=== PATIENT | female | born 1985 ===

== ENCOUNTER 2019-09-16 07:28 | Emergency (ER) | payer OTHER ==
[~2019-09-16] VITALS: Ht 162.6 cm; Wt 81.6 kg
[2019-09-16 08:16] LABS: PLATELET COUNT 272 K/uL (152-353)
[2019-09-16 08:20] LABS: POTASSIUM 3.7 mmol/L (3.6-5.2); SODIUM 140 mmol/L (136-145)
[2019-09-16 10:53] VITALS: BP 106/63; TEMP 98
== END 2019-09-16 10:55 | disposition home or self-care (01) ==
LOC: ED 07:28
PROVIDERS: Family Medicine
DX: R07.89 Other chest pain (principal); K21.9 Gastro-esophageal reflux disease without esophagitis
CPT/HCPCS: 36415; 80053; 81000; 81025; 82550; 84484; 85027; 93005; 96374; 99284; J1885

== ENCOUNTER 2019-09-20 09:04 | Outpatient (CLI) | payer OTHER | END 2019-09-20 22:03 | disposition home or self-care (01) | LOC: MAMMO 09:04 | DX: N64.4 Mastodynia (principal); R07.9 Chest pain, unspecified ==

== ENCOUNTER 2019-09-21 20:36 | Emergency (ER) | payer OTHER ==
[~2019-09-21] VITALS: Ht 162.6 cm; Wt 81.6 kg
[2019-09-21 22:01] LABS: SODIUM 139 mmol/L (136-145)
[2019-09-21 22:03] LABS: PLATELET COUNT 268 K/uL (152-353)
[2019-09-21 22:56] VITALS: BP 108/74; TEMP 98.3
== END 2019-09-21 22:56 | disposition home or self-care (01) ==
LOC: ED 20:36
DX: R07.89 Other chest pain (principal)
CPT/HCPCS: 36415; 80053; 84484; 85027; 93005; 96372; 99283; J1885

== ENCOUNTER 2019-11-18 06:35 | Emergency (ER) | payer OTHER ==
[~2019-11-18] VITALS: Ht 162.6 cm; Wt 81.6 kg
[2019-11-18 08:19] LABS: PLATELET COUNT 263 K/uL (152-353)
[2019-11-18 08:27] LABS: POTASSIUM 3.4 mmol/L (3.6-5.2)
[2019-11-18 09:05] VITALS: BP 132/93; TEMP 98.1
== END 2019-11-18 09:11 | disposition home or self-care (01) ==
LOC: ED 06:35
PROVIDERS: Family Medicine
DX: J20.9 Acute bronchitis, unspecified (principal); R05 Cough; J02.9 Acute pharyngitis, unspecified; B34.9 Viral infection, unspecified; Z20.828 Contact with and (suspected) exposure to other viral communicable diseases
CPT/HCPCS: 36415; 80053; 81000; 81025; 82728; 83605; 85027; 85379; 87635; 87651; 96374; 99284; U0003

== ENCOUNTER 2021-02-09 18:27 | Emergency (ER) | payer OTHER ==
[~2021-02-09] VITALS: Ht 162.6 cm; Wt 81.6 kg
[2021-02-09 19:05] LABS: PLATELET COUNT 242 K/uL (152-353)
[2021-02-09 19:24] LABS: POTASSIUM 3.9 mmol/L (3.6-5.2)
[2021-02-09 20:15] VITALS: BP 126/84; TEMP 97.2
== END 2021-02-09 20:15 | disposition home or self-care (01) ==
LOC: ED 18:27
PROVIDERS: Hospitalist
DX: U07.1 COVID-19 (principal); J06.9 Acute upper respiratory infection, unspecified; R06.4 Hyperventilation
CPT/HCPCS: 36415; 80048; 85027; 93005; 96372; 99283; J1100